=== PATIENT | male | born 1960 | race Caucasian/White ===

== ENCOUNTER → 2017-07-10 | Outpatient (CLI) | payer OTHER ==
--- NOTE | 2017-07-10 18:29 | XR ---
Left shoulder HISTORY: Left shoulder pain, trauma 3 views of the left shoulder Arthropathy present at the acromioclavicular joint. Left lung apex as visualized is normal. Alignment and bone mineralization are maintained. Question lucent lesion in the humeral head on internal rotat ion. IMPRESSION: No fracture or dislocation is evident. Additional findings above.
== END | disposition home or self-care (01) ==
LOC: RADXRMAIN 16:31
PROVIDERS: ATTEND Family Medicine
DX: M12.812 Other specific arthropathies, not elsewhere classified, left shoulder (principal)

== ENCOUNTER → 2018-03-19 | Outpatient (CLI) | payer OTHER ==
--- NOTE | 2018-03-20 17:06 | MR ---
EXAMINATION TYPE: MR shoulder LT wo con DATE OF EXAM: 03/19/2018 COMPARISON: Left shoulder radiographs dated 07/10/2017 HISTORY: Left shoulder pain with Limited ROM, REFER TO XRAY TECHNIQUE: Multiplanar, multisequence imaging of the left shoulder is performed without contrast. FINDINGS: Rotator Cuff: There is a low-grade partial-thickness articular surface tear of the insertional fibers of the supraspinatus measuring 8 x 7 mm. There is moderate supraspinatus tendinosis as well as bursa l surface fiber fraying. Additionally there is a second 8 x 5 mm more anterior insertional fiber part ial-thickness tear. There is mild to moderate tendinosis of the infraspinatus demonstrated as intrinsic signal alteration within the myotendinous junction and distal fibers with no focal tear. There is normal muscle volume and signal of the teres minor and subscapularis. Acromioclavicular Joint: There is moderate acromioclavicular arthropathy with capsular hypertrophy, s ubchondral cysts and marginal osteophytes as well as joint space narrowing. There is impression upon the supraspinatus with signal alteration the supraspinatus indicating internal impingement. Glenohumeral Joint: There is joint space narrowing with near [id number] articulation of the glenohu meral joint and numerous subchondral cysts of the humeral head and glenoid. Labrum: There is a superior anterior to posterior glenoid labral tear with extent inferiorly and over all glenoid labral degeneration. Biceps Tendon: The long head of biceps is in normal location within bicipital groove. There is a spli t tear of the intra-articular portion of the long head of the biceps with attenuation related to intr a-articular tendinopathy. Bone marrow signal: The question lucent lesion within the left humeral head on internal rotation on t he shoulder radiograph dated 07/10/2017 relates to subchondral cysts, enthesopathy from rotator cuff in sertion on the greater trochanter and humeral head. No focal abnormal marrow signal is appreciated. Other: Scant amount of fluid is seen within the subcoracoid bursa that may relate to bursitis clinica lly. IMPRESSION: 1. Low-grade partial-thickness tears of the articular surface of the supraspinatus in its posterior i nsertional fibers measuring 8 x 7 mm and anterior insertional fibers measuring 8 x 5 mm. 2. Superior labral anterior to posterior with extent to the inferior labrum and overall glenoid labru m degeneration. 3. Advanced glenohumeral arthropathy with near [id number] articulation and subchondral cystic agarwal e of the glenoid and humeral head. The questioned lucent lesion on the prior radiographs relates to s ubchondral cysts within the humeral head. 4. Split tear of the intra-articular portion of the long head of the biceps with intra-articular tend inopathy. 5. Moderate acromio clavicular arthropathy resulting in abnormal signal of the supraspinatus indicati ng internal impingement. 6. Scant amount of fluid within the subcoracoid bursa that may clinically relate to bursitis. 7. Mild to moderate infraspinatus tendinosis.
== END ==
LOC: RADMRIMAIN 14:54
PROVIDERS: ATTEND Family Medicine
DX: M75.112 Incomplete rotator cuff tear or rupture of left shoulder, not specified as traumatic (principal); M79.89 Other specified soft tissue disorders; M12.812 Other specific arthropathies, not elsewhere classified, left shoulder; S46.212A Strain of muscle, fascia and tendon of other parts of biceps, left arm, initial encounter; M75.82 Other shoulder lesions, left shoulder

== ENCOUNTER → 2018-08-05 | Outpatient (CLI) | payer OTHER ==
--- NOTE | 2018-08-05 21:52 | CONS ---
CONSULTATION This is a consultation for sleep apnea. This is a 58-year-old male patient who is coming in for increased tiredness and sleepiness. Stating that his CPAP treatment is not adequate at this point in time. The patient was diagnosed having obstructive sleep apnea back in 2007 and at that time, evaluation was done through our sleep Center. The patient back then used to have an AHI of 27, consistent with moderate severe disease and at that time he used to weight 205 pounds. The patient back then was treated with a CPAP pressure of 9 cm of water. Subsequently another CPAP titration was done 2011 and the CPAP pressure was brought up to 11 cm of water. During that time, the patient used to weight 218 pounds. Since then, the patient has gained weight and is currently up to 227. Also his previous CPAP machine broke and the patient has been utilizing his 's CPAP unit and the exact pressure is not known at this point in time. Never the less, he is not seeing the same benefit he used to see in the past. He is somnolent and sleepy during the day. He has snoring while on treatment and while during wearing a full face mask. He is quite tired especially that he is carrying 2 jobs. 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 He is going to bed around 9 p.m., waking up between 7:30 to 8 am in the morning. He is very much fatigued and tired and he is sometimes having difficulty in keeping himself awake. Riverside score of 13. He has nocturia and grinding of the teeth. No sleepwalking or sleep talking. No parasomnias. His weight has been gradually going up as mentioned. PAST MEDICAL HISTORY: 1. Obstructive sleep apnea. 2. Obesity. 3. History of cleft lip and palate. PAST SURGICAL HISTORY: Includes an vasectomy, repair of a cleft lip and palate and tonsillectomy. DRUG ALLERGIES: Not known. OUTPATIENT MEDICATION LIST: Includes aspirin 81 mg p.o. daily and Enalapril 10 mg p.o. daily. SOCIAL HISTORY: The patient is a nonsmoker. No history of alcohol. No history of IV drugs. FAMILY HISTORY: Positive for non-Hodgkin's lymphoma in his father. Negative for sleep apnea. REVIEW OF SYSTEMS: 14-point review of system was done. The patient is currently somnolent and sleepy. He has no insomnia. Denies having any anxiety or panic attacks. No claustrophobia. No palpitation or chest pain. No heartburn or nausea or vomiting. No sleep paralysis. No hallucinations. No cataplexy. No history of any motor vehicle accident because of feeling drowsy or sleepy. No weight loss. In fact, the patient's weight has been gradually going up over the past 10 years. No major restlessness in lower extremities. No symptoms of restless legs syndrome. PHYSICAL EXAMINATION: BP is 151/83, pulse 78, respirations 16, temperature 98.6, saturation 92% on room air. Height 5 feet 7 inches, weight is 227. Neck size is 19-3/4 of an inch. Riverside score 13, BMI 35.5. General appearance: Calm, comfortable in no acute distress. Head is atraumatic, normocephalic. NECK: Supple. There is no JVD. No goiter or neck masses. Mallampati class 4. Scar of previous cleft lip and palate seen over the anterior lip area. HEART: Sounds are regular rate and rhythm. Normal S1, S2. No S3, S4. No murmurs. LUNGS: Sounds are clear. Breath sounds are equal and symmetric bilaterally. ABDOMEN: Soft, nontender. No organomegaly. EXTREMITIES: No edema. No cyanosis or clubbing. Neurological: The patient is alert and oriented x3. There is no focal neurological deficits. Psychiatrically is negative for anxiety or depression. SKIN: Negative for wounds or ulceration. IMPRESSION: 1. Symptomatic obstructive sleep apnea. The patient was diagnosed initially having LANEY back in 2007 and at that time, his disease was moderately severe, with an AHI of 27. Since then, he has gained significant amount of weight. His CPAP initially was set at 9 later and brought up to 11 and current setting is not known as the patient has borrowed his 's CPAP machine. His treatment is not successful as the patient is somnolent and sleepy probably related to suboptimal CPAP pressure or malfunctioning CPAP unit. 2. Hypersomnia Riverside score of 15. 3. Obesity with a BMI of 35.5. 4. Hypertension. PLAN: The patient will need another CPAP titration. I am suggesting to bring the patient to the sleep center to undergo a CPAP titration. During which the patient will be given a new CPAP unit. At the same time, his pressure will be adjusted and will be given the appropriate CPAP pressure mask interface. Encourage weight loss. Implement good sleep hygiene measures. We will offer the patient a new CPAP machine after his CPAP titration, I will see back in follow up to discuss treatment response. ASYAL / IJN: [id number] /
== END | disposition home or self-care (01) ==
LOC: SLEEP 15:10
PROVIDERS: ATTEND Internal Medicine Critical Care Medicine
DX: G47.33 Obstructive sleep apnea (adult) (pediatric) (principal); E66.9 Obesity, unspecified; I10 Essential (primary) hypertension; Z68.35 Body mass index [BMI] 35.0-35.9, adult; Z79.82 Long term (current) use of aspirin; Z79.899 Other long term (current) drug therapy
CPT/HCPCS: 99211

== ENCOUNTER → 2018-10-07 | Outpatient (CLI) | payer OTHER ==
--- NOTE | 2018-10-07 18:02 | PN ---
PROGRESS NOTE Nando is 58, coming in for a compliancy check regarding obstructive sleep apnea. The patient has an AHI of 27, consistent with moderately severe disease. The patient underwent a CPAP titration. The patient tolerated CPAP pressure of 15 cm of water. On today's evaluation he has an older generation Respironic unit which I updated the pressure to 15 cm of water. I also offered him a Dream Wear large-sized under the nose fullface mask instead of his Mirage Quattro full face mask. The patient was happy with the changes. Upon further checking his CPAP machine, it is an older generation CPAP unit and the patient would benefit from a newer generation ResMed med unit and I am ordering a new machine for him. His machine is quite noisy and I am questioning its functionality. Current Dodson Score is at 10. He has no other complaints. Results of the sleep study was discussed with him at length. REVIEW OF SYSTEMS: Fourteen-point review of system was done. Positive findings are mentioned in history of present illness. PHYSICAL EXAMINATION: BP is 144/77, pulse 72, respirations 16, temperature 97.5, saturation is 96% on room air. Dodson score is at 10. Weight is 224. GENERAL: Calm, comfortable. His head is atraumatic, normocephalic. NECK: Supple. Mallampati class IV. There is no goiter or neck masses. LUNGS: Clear to auscultation. HEART: Sounds regular. Normal S1, S2. No S3, no S4. No murmurs. ABDOMEN: Soft, nontender. No organomegaly. EXTREMITIES: No edema. No cyanosis or clubbing. NEUROLOGIC: Alert and oriented x3. No focal neurological deficits. PSYCHIATRIC: Negative for anxiety or depression. IMPRESSION: 1. Obstructive sleep apnea, moderate AHI of 27, currently on CPAP. 2. Hypersomnia. PLAN: 1. Initiate CPAP therapy at a pressure of 15 cm of water. 2. Offered the patient a new CPAP machine. An order was placed to set up a new CPAP unit at a pressure of 15 cm of water with a C-flex of 3. 3. Offer this patient a Dream Wear large-sized under the nose fullface mask. 4. Encourage weight loss. 5. Implement good sleep hygiene measures. 6. See me back in the sleep center in 30 to 90 days after obtaining his new CPAP machine. MMODL / IJN: [id number] /
== END ==
LOC: SLEEP 14:55
PROVIDERS: ATTEND Internal Medicine Critical Care Medicine
DX: G47.33 Obstructive sleep apnea (adult) (pediatric) (principal); Z99.89 Dependence on other enabling machines and devices

== ENCOUNTER 2020-08-03 07:21 | Day surgery (SDC) | payer OTHER ==
[2020-08-02 09:00] VITALS: BMI 32.5
[~2020-08-03 07:21] MED LIST: LACTATED RINGERS 1,000 ML IV SCH
[2020-08-03 08:05] VITALS: TEMP 98
[2020-08-03] MEDS ORDERED: LIDOCAINE 1% (10MG/ML) FOR IV START INTRADERMA ONE (08:05)
[2020-08-03 08:08] LABS: Glucose,Whole Blood 127 mg/dL (75-99)
[2020-08-03] MEDS ORDERED: PROPOFOL 10 MG/ML 20 ML VIAL IV ONE (08:25)
--- NOTE | 2020-08-03 08:40 | P.PCN ---
Date of Procedure: 08/03/20 Procedure(s) Performed: BRIEF HISTORY: Patient is a 60-year-old pleasant male scheduled for an elective colonoscopy as a part of screening for colon cancer. Her last colonoscopy was 11 years ago. PROCEDURE PERFORMED: Colonoscopy with biopsy. PREOPERATIVE DIAGNOSIS: Screening for colon cancer. IV sedation per Anesthesia. PROCEDURE: After informed consent was obtained, the patient, was brought into the endoscopy unit. IV sedation was administered by Anesthesia under continuous monitoring. Digital rectal examination was normal. Initially the Olympus CF-160 flexible video colonoscope was then inserted in the rectum, gradually advanced into the cecum without any difficulty. Careful examination was performed as the scope was gradually being withdrawn. Ileocecal valve and the appendiceal orifice were visualized and appeared normal. Prep was excellent. Mucosa of the cecum, ascending colon, transverse colon, descending colon, sigmoid colon, and rectum appeared normal. In the distal rectum there were 2 polyps measuring 2 mm and 3 mm in size both of which were removed by cold biopsy. Retroflexion was performed in the rectum and no lesions were seen. The patient tolerated the procedure well. IMPRESSION: 2 mm and 3 mm sessile rectal polyp status post cold biopsy Rest of the colon appeared normal RECOMMENDATIONS: Findings of this examination were discussed with the patient as well as his family. He was advised to follow with the biopsy results. If the biopsy shows an adenoma he can have a repeat colonoscopy in 5 years.
[2020-08-03 08:59] VITALS: BP 125/83; PULSE 60; RESP 18
== END 2020-08-03 09:27 | disposition home or self-care (01) ==
LOC: ORWHC2ENDO 07:21
PROVIDERS: ATTEND Internal Medicine Gastroenterology
DX: Z12.11 Encounter for screening for malignant neoplasm of colon (principal); K62.1 Rectal polyp; G47.33 Obstructive sleep apnea (adult) (pediatric); E11.9 Type 2 diabetes mellitus without complications; Z98.890 Other specified postprocedural states; Z79.84 Long term (current) use of oral hypoglycemic drugs; Z79.82 Long term (current) use of aspirin; Z99.89 Dependence on other enabling machines and devices
CPT/HCPCS: 88305; 45380; J2704

== ENCOUNTER → 2020-12-06 | Outpatient (CLI) | payer OTHER ==
--- NOTE | 2020-12-06 11:39 | MR ---
EXAMINATION TYPE: MR brain wo/w con DATE OF EXAM: 12/06/2020 COMPARISON: None HISTORY: Short term memory loss. TECHNIQUE: Multiplanar, multisequence images of the brain and brainstem is performed without and with IV contras t, utilizing 9 mL intravenous Gadavist . FINDINGS: Diffusion weighted images demonstrate no evidence of a recent infarct or other diffusion ab normality. There is changes of chronic mastoiditis and sinusitis with nasal septal deviation. Orbits symmetric. Mild to moderate generalized degenerative change with areas of abnormal signal scattered throughout t he white matter bilaterally in a nonspecific pattern but most typical remote microvascular ischemia. Within the posterior nasopharynx there is a 1 cm area of mucosal prominence for which direct visualiz ation is recommended. Midline structures demonstrate normal morphology. The craniocervical junction appears within normal limits. Post contrast images demonstrate no abnormal enhancement. The dural venous sinuses appear pa tent. Small 7 mm subcutaneous nodule overlying the left parietal bone to small characterize. IMPRESSION: 1. Mild to moderate degenerative and nonspecific white matter changes most typical remote ischemia. 2. Changes suggestive of chronic sinusitis and mastoiditis. It is somewhat nodular prominence of the posterior nasopharynx and ENT consultation suggested.
== END | disposition home or self-care (01) ==
LOC: RADMRIMAIN 09:42
PROVIDERS: ATTEND Family Medicine
DX: I67.82 Cerebral ischemia (principal); J39.2 Other diseases of pharynx; R41.3 Other amnesia
CPT/HCPCS: 70553; A9585

== ENCOUNTER → 2020-12-13 | Outpatient (CLI) | payer OTHER ==
--- NOTE | 2020-12-13 19:25 | PN ---
PROGRESS NOTE 60-year-old male patient coming in for a regular followup on his obstructive sleep apnea. The patient is known to have LANEY with an AHI of 27. His disease has been moderately severe and he is using an older-generation Respironics unit set at a pressure of 15 cm of water. He is also using a Mirage Quattro fullface mask. He is interested in updating his CPAP unit. The machine has become noisy and exceeded his motor life and the patient is very much interested in updating his CPAP machine knowing that he is very much dependent on the machine and he is unable to go to bed without utilizing his treatment. He is also using a Mirage Quattro fullface mask which is something that he would like to keep and not change. He has lost around 20 pounds since his last evaluation, and over the past 2 years he has lost 20 pounds. He has been diagnosed having diabetes mellitus which is well controlled with a HbA1c of 5.9. While on treatment, his treatment has been successful. While off the treatment, he could become somnolent and sleepy. A confirmation of his sleep apnea needs to be done and I ordered a home sleep study to establish diagnosis and proceed with treatment accordingly. His current vitals: BP is 160/79, pulse 63, respirations 16, temperature 97.7, saturation 97% on room air. Height is 5 feet 7 inches weight is 204. Florence is 12. BMI 31.9. General appearance: Calm and comfortable. HEAD is atraumatic, normocephalic. NECK is supple. No JVD. No goiter or neck masses. Mallampati class 4. LUNGS clear to auscultation. No wheezes. HEART sounds are regular rate and rhythm. Normal S1, S2. No murmurs. ABDOMEN soft, nontender. No organomegaly. No direct tenderness, rebound, guarding. EXTREMITIES: No edema, no cyanosis or clubbing. No wounds or ulceration. NEUROLOGIC: Awake and alert. There is no focal neurological deficits. PSYCHIATRIC: Negative for anxiety or depression. IMPRESSION: 1. Obstructive sleep apnea AHI of 27 currently on CPAP. Machine is old, functional exceeds motor life and noisy. Furthermore, the Respironics units have been recall. 2. Hypersomnia, Florence score of 12. 3. Obesity with interval 20 pounds weight loss, BMI is down to 31.9. 4. New onset diabetes mellitus. PLAN: Home sleep study to re-establish the presence of sleep apnea and proceed with treatment accordingly. Most likely, we will proceed with an APAP unit 5-15 keeping the Mirage Quattro fullface mask. We will continue to follow. MMODL / IJN: [id number] / ZACARIAS
== END | disposition home or self-care (01) ==
LOC: SLEEP 15:54
PROVIDERS: ATTEND Internal Medicine Critical Care Medicine
DX: G47.33 Obstructive sleep apnea (adult) (pediatric) (principal); G47.10 Hypersomnia, unspecified; E11.9 Type 2 diabetes mellitus without complications; E66.9 Obesity, unspecified; Z68.31 Body mass index [BMI] 31.0-31.9, adult

== ENCOUNTER 2021-02-27 17:09 | Emergency (ER) | payer OTHER ==
[2021-02-27 17:17] VITALS: RESP 20
[2021-02-27] MEDS ORDERED: ACETAMINOPHEN TAB 500 MG TAB PO STA (17:27)
[2021-02-27] MEDS ORDERED: IBUPROFEN 800 MG TAB PO STA (17:27)
--- NOTE | 2021-02-27 17:28 | ED ---
Dizziness HPI - General Chief Complaint: Dizziness Stated Complaint: Dizziness Time Seen by Provider: 02/27/21 17:26 Source: patient, EMS, RN notes reviewed, old records reviewed Mode of arrival: EMS Limitations: no limitations - History of Present Illness Initial Comments: 60-year-old well-appearing male patient presents to the emergency room with feve r after receiving monoclonal antibodies today at 1400. Patient states he tested positive for coronavirus on the February 23 after being sick with cough since the . States that his fever spiked today. He felt dizzy with position changes. He denies any chest pain. He denies any nausea vomiting or diarrhea. He has a history of diabetes which she takes metformin for and sleep apnea. Never been a smoker. MD Complaint: dizziness -: days(s) (6) Description: lightheadedness History of Same: No History of Trauma: No Worsens With: position Associated Symptoms: cough, fever/chills, other (COVID + 02/23/21, monoclonal a ntibody infusin today 1400) - Related Data Home Medications Medication Instructions Recorded Confirmed Aspirin [Adult Low Dose Aspirin EC] 81 mg PO DAILY 08/02/20 08/02/20 Cinnamon Bark [Cinnamon] 500 mg PO 08/02/20 Magnesium 5 ml PO DAILY 08/02/20 08/03/20 Lima-3 Acid Ethyl Esters [Lovaza] 1 tab PO DAILY 08/02/20 08/03/20 Prostate Health 1 tab PO DAILY 08/02/20 08/03/20 Tumeric 1 tab PO DAILY 08/02/20 08/03/20 metFORMIN HCL ER [Glucophage XR] 500 mg PO BID 08/02/20 08/03/20 Allergies Allergy/AdvReac Type Severity Reaction Status Date / Time No Known Allergies Allergy Verified 02/27/21 17:17 Review of Systems ROS Statement: Those systems with pertinent positive or pertinent negative responses have been documented in the HPI. ROS Other: All systems not noted in ROS Statement are negative. Past Medical History Past Medical History: Diabetes Mellitus, Sleep Apnea/CPAP/BIPAP History of Any Multi-Drug Resistant Organisms: None Reported Additional Past Surgical History / Comment(s): mult sx for cleft palate as child, colonoscopy Past Anesthesia/Blood Transfusion Reactions: No Reported Reaction Past Psychological History: No Psychological Hx Reported Smoking Status: Never smoker Past Alcohol Use History: None Reported Past Drug Use History: None Reported - Past Family History Mother Family Medical History: No Reported History General Exam Limitations: no limitations General appearance: alert, in no apparent distress Head exam: Present: atraumatic, normocephalic, normal inspection Eye exam: Present: normal appearance, EOMI. Absent: scleral icterus, conjunctival injection, periorbital swelling ENT exam: Present: normal exam, normal oropharynx, mucous membranes moist Neck exam: Present: normal inspection, full ROM. Absent: tenderness, meningismus, lymphadenopathy, thyromegaly Respiratory exam: Present: normal lung sounds bilaterally. Absent: wheezes, rales, rhonchi, chest wall tenderness, accessory muscle use Cardiovascular Exam: Present: regular rate, normal rhythm, normal heart sounds. Absent: systolic murmur, diastolic murmur, rubs, gallop, clicks GI/Abdominal exam: Present: soft, normal bowel sounds. Absent: tenderness Extremities exam: Present: normal inspection, full ROM, normal capillary refill. Absent: tenderness, pedal edema, joint swelling, calf tenderness Back exam: Absent: tenderness, CVA tenderness (R), CVA tenderness (L), muscle spasm, paraspinal tenderness, vertebral tenderness, rash noted Neurological exam: Present: alert, oriented X3 Psychiatric exam: Present: normal affect, normal mood Skin exam: Present: warm, dry, intact, normal color. Absent: rash, cyanosis, diaphoretic, petechiae, pallor Course Vital Signs 02/27/21 02/27/21 02/27/21 17:11 17:36 18:56 Temperature 104.1 F H 100.4 F H Pulse Rate 95 96 84 Respiratory 20 20 20 Rate Blood Pressure 143/73 124/67 115/67 O2 Sat by Pulse 95 94 L 96 Oximetry EKG Findings - EKG Results: EKG: sinus rhythm (Ventricular rate 91, SC interval 0.142, QRS 0.86, QTC 0.400) Medical Decision Making - Medical Decision Making X-ray shows mild interstitial lower lobe density. There is no pleural effusion and heart and mediastinum are normal. There is no evidence of leukocytosis. Patient was diagnosed with covid on February 23 and given monoclonal antibodies today. He has not taken any Tylenol or Motrin today and did spike a fever of 104. He states that he came to the emergency room for dizziness and fever. His medical history includes diabetes and takes metformin. EKG shows sinus rhythm with no evidence of ST elevation. Patient was given a liter of normal saline Tylenol and Motrin emergency room his temperature has come down to 100.4. He'll be directed to take 650 mg of Tylenol every 4 hours. Ambulatory pulse ox is 96- 98%. Case discussed with Dr. Solares. - Lab Data Result diagrams: 02/27/21 17:37 02/27/21 17:37 Lab Results 02/27/21 02/27/21 Range/Units 17:37 17:37 WBC 10.2 (3.8-10.6) k/uL RBC 4.48 (4.30-5.90) m/uL Hgb 14.0 (13.0-17.5) gm/dL Hct 40.9 (39.0-53.0) % MCV 91.3 (80.0-100.0) fL MCH 31.4 (25.0-35.0) pg MCHC 34.3 (31.0-37.0) g/dL RDW 12.6 (11.5-15.5) % Plt Count 134 L (150-450) k/uL MPV 7.9 Neutrophils % 87 % Lymphocytes % 7 % Monocytes % 5 % Eosinophils % 0 % Basophils % 0 % Neutrophils # 8.8 H (1.3-7.7) k/uL Lymphocytes # 0.7 L (1.0-4.8) k/uL Monocytes # 0.5 (0-1.0) k/uL Eosinophils # 0.0 (0-0.7) k/uL Basophils # 0.0 (0-0.2) k/uL Sodium 134 L (137-145) mmol/L Potassium 4.3 (3.5-5.1) mmol/L Chloride 99 (98-107) mmol/L Carbon Dioxide 24 (22-30) mmol/L Anion Gap 11 mmol/L BUN 18 (9-20) mg/dL Creatinine 1.00 (0.66-1.25) mg/dL Est GFR (CKD-EPI)AfAm >90 (>60 ml/min/1.73 sqM) Est GFR (CKD-EPI)NonAf 81 (>60 ml/min/1.73 sqM) Glucose 171 H (74-99) mg/dL Calcium 9.1 (8.4-10.2) mg/dL Total Bilirubin 0.6 (0.2-1.3) mg/dL AST 20 (17-59) U/L ALT 16 (4-49) U/L Alkaline Phosphatase 54 (38-126) U/L Total Protein 7.7 (6.3-8.2) g/dL Albumin 4.4 (3.5-5.0) g/dL Disposition Clinical Impression: COVID Disposition: HOME SELF-CARE Condition: Good Instructions (If sedation given, give patient instructions): Coronavirus Disease 2019 (COVID-19), Dizziness (ED) Additional Instructions: Take Tylenol 650 mg every 4- 6 hours for body aches and fevers. Follow-up with the primary care doctor this week. Return to the emergency room with any new or worsening symptoms. Is patient prescribed a controlled substance at d/c from ED?: No Referrals: Hebert Jonas DO [Primary Care Provider] - 1-2 days Time of Disposition: 20:33
[2021-02-27] MEDS ORDERED: SODIUM CHLORIDE 0.9% 1,000 ML IV STA (17:29)
[2021-02-27 17:43] LABS: Basophils % (A) 0 %; Eosinophils % (A) 0 %; HCT 40.9 % (39.0-53.0); Lymphocytes # (A) 0.7 k/uL (1.0-4.8); Lymphocytes % (A) 7 %; MCH 31.4 pg (25.0-35.0); MCHC 34.3 g/dL (31.0-37.0); MCV 91.3 fL (80.0-100.0); Mean Platelet Volume 7.9; Monocytes # (A) 0.5 k/uL (0-1.0); Monocytes % (A) 5 %; Neutrophils # (A) 8.8 k/uL (1.3-7.7); Neutrophils % (A) 87 %; Platelet Count 134 k/uL (150-450); RBC 4.48 m/uL (4.30-5.90); RDW 12.6 % (11.5-15.5); WBC 10.2 k/uL (3.8-10.6)
[2021-02-27 17:54] LABS: ALT 16 U/L (4-49); AST 20 U/L (17-59); African American GFR (CKD) >90 (>60 ml/min/1.73 sqM); Albumin 4.4 g/dL (3.5-5.0); Alkaline Phosphatase 54 U/L (38-126); Anion Gap 11 mmol/L; Blood Urea Nitrogen 18 mg/dL (9-20); Calcium 9.1 mg/dL (8.4-10.2); Carbon Dioxide 24 mmol/L (22-30); Chloride 99 mmol/L (98-107); Glucose 171 mg/dL (74-99); Non-African American GFR(CKD) 81 (>60 ml/min/1.73 sqM); Potassium 4.3 mmol/L (3.5-5.1); Sodium 134 mmol/L (137-145); Total Bilirubin 0.6 mg/dL (0.2-1.3); Total Protein 7.7 g/dL (6.3-8.2)
--- NOTE | 2021-02-27 18:30 | XR ---
EXAMINATION TYPE: XR chest 2V DATE OF EXAM: 02/27/2021 COMPARISON: 08/24/2010 HISTORY: Fever TECHNIQUE: FINDINGS: Heart and mediastinum are normal. Lungs are clear of consolidation. There are no hilar mass es. There is some minimal reticular interstitial density in the lower lung cortes. There are chest le ads. There is no pleural effusion. Bony thorax is intact. IMPRESSION: Mild interstitial reticular lower lobe density is new compared to old exam. No pulmonary consolidation.
[2021-02-27 18:57] VITALS: BP 115/67; PULSE 84; TEMP 100.4
== END 2021-02-27 21:08 | disposition home or self-care (01) ==
LOC: EC 17:09
DX: U07.1 COVID-19 (principal); E11.9 Type 2 diabetes mellitus without complications; Z79.82 Long term (current) use of aspirin; Z79.84 Long term (current) use of oral hypoglycemic drugs
CPT/HCPCS: 36415; 71046; 80053; 85025; 93005; 96360; 99284

== ENCOUNTER → 2022-03-20 | Outpatient (CLI) | payer OTHER ==
--- NOTE | 2022-03-20 11:09 | XR ---
EXAMINATION TYPE: XR lumbosacral spine min 4V DATE OF EXAM: 03/20/2022 10:54 AM INDICATION: Patient age:Male; 61 years old; Reason for study: M54.50 Low Back Pain; [facility]. COMPARISON: None TECHNIQUE: Frontal, lateral , bilateral oblique and coned in L5-S1 lateral views of the spine. FINDINGS: There are 5 lumbar type vertebral bodies identified. No evidence of any acute osseous patho logy. No evidence of loss of vertebral body height is seen. Multilevel degenerative disc disease wit h disc space narrowing, endplate sclerosis, and anterior osteophytosis. This is most pronounced at L5 -S1. There is normal alignment of the lumbar vertebral bodies. IMPRESSION: 1. No acute process. 2. Mild multilevel degenerative disc disease. Most pronounced at L5-S1.
== END | disposition home or self-care (01) ==
LOC: RADXRMAIN 10:33
PROVIDERS: ATTEND Family Medicine
DX: M51.37 Other intervertebral disc degeneration, lumbosacral region (principal)
CPT/HCPCS: 72110